=== PATIENT | female | born 1980 | race Caucasian/White ===

== ENCOUNTER 2020-09-08 13:08 | Emergency (ER) | payer MEDICAID, OTHER ==
--- NOTE | 2020-09-08 13:26 | ER Document Report ---
ED Medical Screen (RME) - General Chief Complaint: Palpitations Stated Complaint: PALPITATIONS Time Seen by Provider: 09/08/20 13:19 Primary Care Provider: RERE ALVARADO MD [Primary Care Provider] - Follow up as needed Information source: Patient Notes: Patient presents complaining of palpitations and chest discomfort that started last night. Patient reports some generalized fatigue. No nausea or vomiting. Patient denies any cough or cold symptoms. Patient reports a distant history of SVT as a child and states she did have -induced preeclampsia and congestive heart failure, both of which she has completely recovered. I have greeted and performed a rapid initial assessment of this patient. A comprehensive ED assessment and evaluation of the patient, analysis of test results and completion of the medical decision making process will be conducted by additional ED providers. Physical Exam - Vital signs Vitals: Temp Pulse Resp BP Pulse Ox 98.6 F 70 20 131/87 H 96 09/08/20 13:22 09/08/20 13:22 09/08/20 13:22 09/08/20 13:22 09/08/20 13:22 - General General appearance: Appears well, Alert In distress: None - Respiratory Respiratory status: No respiratory distress. No: Labored, Tachypnea Breath sounds: No: Nonproductive cough, Productive cough Course - Vital Signs Vital signs: Temp Pulse Resp BP Pulse Ox 98.6 F 70 20 131/87 H 96 09/08/20 13:22 09/08/20 13:22 09/08/20 13:22 09/08/20 13:22 09/08/20 13:22 Doctor's Discharge - Discharge Referrals: RERE ALVARADO MD [Primary Care Provider] - Follow up as needed
--- NOTE | 2020-09-08 14:21 | RADIOLOGY REPORT (SQ) ---
EXAM DESCRIPTION: CHEST SINGLE VIEW IMAGES COMPLETED DATE/TIME: 09/08/2020 2:11 pm REASON FOR STUDY: palpitations, cp COMPARISON: None. EXAM PARAMETERS: NUMBER OF VIEWS: One view. TECHNIQUE: Single frontal radiographic view of the chest acquired. RADIATION DOSE: NA LIMITATIONS: None. FINDINGS: LUNGS AND PLEURA: No opacities, masses or pneumothorax. No pleural effusion. MEDIASTINUM AND HILAR STRUCTURES: No masses. Contour normal. HEART AND VASCULAR STRUCTURES: Heart normal in size. Normal vasculature. BONES: No acute findings. HARDWARE: None in the chest. OTHER: No other significant finding. IMPRESSION: NO ACUTE RADIOGRAPHIC FINDING IN THE CHEST. TECHNICAL DOCUMENTATION: JOB ID: [id number] 2010 [employer]- All Rights Reserved Reading location - IP/workstation name: [id number]
[2020-09-08 15:03] LABS: ABSOLUTE EOSINOPHILS # (AUTO) 0.1 10^3/uL (0.0-0.6); ABSOLUTE LYMPHOCYTES (AUTO) 1.5 10^3/uL (0.5-4.7); ABSOLUTE MONOCYTES (AUTO) 0.4 10^3/uL (0.1-1.4); ABSOLUTE NEUT (AUTO) 4.4 10^3/uL (1.7-8.2); BASOPHILS % (AUTO) 0.4 % (0-2); HEMATOCRIT 38.7 % (36.0-47.0); HEMOGLOBIN 14.2 g/dL (12.0-15.5); LYMPHOCYTES % (AUTO) 22.9 % (13-45); MEAN CORPUSCULAR HEMOGLOBIN 31.2 pg (27.0-33.4); MEAN CORPUSCULAR HGB CONC 36.6 g/dL (32.0-36.0); MEAN CORPUSCULAR VOLUME 85 fl (80-97); MONOCYTES % (AUTO) 6.6 % (3-13); PLATELET COUNT 333 10^3/uL (150-450); RED BLOOD COUNT 4.55 10^6/uL (3.72-5.28); RED CELL DISTRIBUTION WIDTH 12.5 % (11.5-14.0); SEGMENTED NEUTROPHILS % (AUTO) 69.1 % (42-78); TOTAL CELLS COUNTED % (AUTO) 100 %; WHITE BLOOD COUNT 6.3 10^3/uL (4.0-10.5)
[2020-09-08 15:07] LABS: APPEARANCE,URINE CLEAR; BILIRUBIN,URINE NEGATIVE (NEGATIVE); COLOR,URINE STRAW; GLUCOSE, URINE NEGATIVE (NEGATIVE); KETONES,URINE NEGATIVE (NEGATIVE); LEUKOCYTE ESTERASE,URINE NEGATIVE (NEGATIVE); NITRITE,URINE NEGATIVE (NEGATIVE); PROTEIN,URINE NEGATIVE (NEGATIVE); URINE SPECIFIC GRAVITY 1.002; UROBILINOGEN,URINE NEGATIVE mg/dL (<2.0)
[2020-09-08 15:23] LABS: ALBUMIN 4.2 g/dL (3.5-5.0); ALKALINE PHOSPHATASE 129 U/L (38-126); ANION GAP 10 (5-19); ASPARTATE AMINO TRANSFERASE 56 U/L (14-36); BILIRUBIN,DIRECT 0.3 mg/dL (0.0-0.4); BILIRUBIN,TOTAL 0.5 mg/dL (0.2-1.3); BLOOD UREA NITROGEN 10 mg/dL (7-20); CALCIUM 9.4 mg/dL (8.4-10.2); CARBON DIOXIDE 25 mmol/L (22-30); CHLORIDE 103 mmol/L (98-107); GLUCOSE 100 mg/dL (75-110); POTASSIUM 4.1 mmol/L (3.6-5.0); TOTAL PROTEIN 7.1 g/dL (6.3-8.2)
--- NOTE | 2020-09-08 16:18 | ER Document Report ---
ED General - General Chief Complaint: Palpitations Stated Complaint: PALPITATIONS Time Seen by Provider: 09/08/20 13:19 Primary Care Provider: RERE ALVARADO MD [Primary Care Provider] - Follow up as needed - [facility] Notes: Chief complaint: Palpitations History of present illness: 40-year-old female with lifelong history of cardiac palpitations worked up extensively in the past (treadmill, cardiac event monitors, echocardiogram) with no evidence of structural heart disease says she has been having more palpitations than usual within the last week and this disturbs her sleep last night. She also noted a vague tightness in the center of her chest while she was having the symptoms lasting less than 5 minutes. No radiation of pain. No nausea or vomiting. No diaphoresis. No dyspnea. Patient says that she has been dieting and has lost about 35 pounds over the last month. She quit smoking years ago but does occasionally vape. She denies any drug abuse. She consumes alcohol only about once a year. She denies excessive caffeine intake. Patient notes that she is a 3 para 3. She had preeclampsia with her second and there is that she was treated for "congestive heart failure" due to elevated blood pressure for a couple weeks after that second . Currently on no medications. No known allergies. Patient has a cardiology department with Dr. Frankel next week. - Related Data Allergies/Adverse Reactions: Sulfa (Sulfonamide Antibiotics) Allergy (Severe, Verified 09/08/20 14:55) Facial edema and rash Past Medical History - General Information source: Patient, [facility] Records - Social History Smoking Status: Former Smoker Frequency of alcohol use: Rare Drug Abuse: None Family History: Reviewed & Not Pertinent - Past Medical History Cardiac Medical History: Reports: Hx Congestive Heart Failure Denies: Hx Coronary Artery Disease, Hx DVT, Hx Heart Attack, Hx Hypercholesterolemia, Hx Pulmonary Embolism Past Surgical History: Reports: Hx Section, Hx Cholecystectomy Review of Systems - Review of Systems Notes: Constitutional: Negative for fever. HENT: Negative for sore throat. Eyes: Negative for visual changes. Cardiovascular: Negative for chest pain. Respiratory: Negative for shortness of breath. Gastrointestinal: Negative for abdominal pain, vomiting or diarrhea. Genitourinary: Negative for dysuria. Musculoskeletal: Negative for back pain. Skin: Negative for rash. Neurological: Negative for headaches, weakness or numbness. 10 point ROS negative except as marked above and in HPI. Physical Exam - Vital signs Vitals: Temp Pulse Resp BP Pulse Ox 98.6 F 70 20 131/87 H 96 09/08/20 13:22 09/08/20 13:22 09/08/20 13:22 09/08/20 13:22 09/08/20 13:22 - Notes Notes: GENERAL: Moderately obese middle-aged female appearing in no acute distress. SKIN: Good turgor no rashes. HEAD: Normocephalic atraumatic. EYES: PERRLA. EOMI. Conjunctivae and sclerae clear. EARS: CANALS AND TMS CLEAR. NOSE: CLEAR. MOUTH: Moist mucosa. Good dentition. No stridor or edema. No drooling. NECK: Supple. No masses or thyromegaly. No adenopathy. Carotids 2+ without bruits. No JVD. BACK: Symmetrical without tenderness. CHEST: Respirations unlabored. Breath sounds clear and symmetrical. HEART: Regular rhythm. No murmur gallop or rub. ABDOMEN: Soft nontender without masses, organomegaly or rebound. Bowel sounds normally active. No bruits. GENITALIA: Deferred. EXTREMITIES: No edema. No calf tenderness. Cap refill less than 1.5 seconds. Dorsalis pedis and posterior tibial pulses 3+ and symmetrical. NEUROLOGICAL: GCS 15. Alert and oriented x3. Normal gait. Fluent speech. Cranial nerves II through XII intact. Sensorimotor and cerebellar normal. Normal tone. PSYCHIATRIC: Appropriate affect. Course - Re-evaluation Re-evalutation: 09/08/20 16:22 Normal exam here other than obesity. TSH is normal. CBC normal. Comprehensive metabolic profile remarkable only for some mild transaminase elevation probably due to fatty infiltration of liver related to her weight. I talked with the patient at some length about palpitations. Discussed the option of taking a low-dose beta-olivia and she would prefer not to do this currently until she is evaluated by cardiology. I think this is reasonable. I did not observe any significant ectopy or dysrhythmias while she was in the emergency department. We will encourage her to follow-up with Dr. Frankel and she may of course return here as needed for new or worsening symptoms. Suggest that she avoid vaping. 09/08/20 16:26 Patient has decided she would like to try low-dose beta-olivia and I am going to prescribe 25 mg of metoprolol daily. I discussed risk/benefits with her. Findings, clinical impression and plan of treatment have been discussed with patient/family. Understanding of current findings and recommendations has been acknowledged by them and there is agreement regarding disposition and follow-up. - Vital Signs Vital signs: Temp Pulse Resp BP Pulse Ox 98.2 F 70 20 131/87 H 100 09/08/20 14:47 09/08/20 13:22 09/08/20 13:22 09/08/20 13:22 09/08/20 13:24 - Laboratory Result Diagrams: 09/08/20 14:20 09/08/20 14:20 Laboratory results interpreted by me: 09/08/20 09/08/20 09/08/20 14:20 14:20 14:35 MCHC 36.6 H AST 56 H ALT 76 H Alkaline Phosphatase 129 H Urine Blood LARGE H - Diagnostic Test Radiology reviewed: Reports reviewed - Per radiologist: Normal chest x-ray. Discharge - Discharge Clinical Impression: Palpitations Condition: Stable Disposition: HOME, SELF-CARE Instructions: Beta Blockers ([facility]) Prescriptions: Metoprolol Succinate [Toprol Xl 25 mg Tab.sr] 25 mg PO DAILY #30 tab.sr.24h Referrals: RERE ALVARADO MD [Primary Care Provider] - Follow up as needed MILTON FRANKEL MD [ACTIVE STAFF] - Follow up as needed
[2020-09-08 17:03] VITALS: BP 121/80
--- NOTE | 2020-09-08 19:24 | EKG REPORT ---
SEVERITY:- NORMAL ECG - SINUS RHYTHM : Confirmed by: Roxanne Yi MD 08-Sep-2020 19:23:09
== END 2020-09-08 17:07 | disposition home or self-care (01) ==
LOC: ER 13:08
DX: R00.2 Palpitations (principal); R74.01 Elevation of levels of liver transaminase levels; E66.9 Obesity, unspecified; R07.89 Other chest pain; Z86.79 Personal history of other diseases of the circulatory system; Z72.0 Tobacco use; Z88.2 Allergy status to sulfonamides
CPT/HCPCS: 36415; 71045; 80053; 81001; 83735; 84443; 84484; 85025; 93005; 93010; 99285